=== PATIENT | male | born 1945 | race Caucasian/White ===

== ENCOUNTER → 2024-01-13 08:18 | Outpatient (REF) | payer MEDICARE, SELFPAY | LOC: MRI 3T 08:18 | PROVIDERS: ATTENDING PHYSICIAN Specialist; FAMILY PHYSICIAN Family Medicine | DX: R97.20 Elevated prostate specific antigen [PSA] (principal) | CPT/HCPCS: 72197; A9575 ==

== ENCOUNTER → 2024-02-05 11:10 | Outpatient (REF) | payer MEDICARE, SELFPAY | LOC: CLAB 11:10 | PROVIDERS: ATTENDING PHYSICIAN Specialist | DX: R97.20 Elevated prostate specific antigen [PSA] (principal) | CPT/HCPCS: 88305; 88344 ==

== ENCOUNTER 2024-04-09 09:05 | Outpatient (RCR) | payer MEDICARE, SELFPAY | END 2024-04-09 23:59 | disposition home or self-care (01) | LOC: RPT 09:05 | PROVIDERS: ATTENDING PHYSICIAN Specialist; FAMILY PHYSICIAN Family Medicine | DX: C61 Malignant neoplasm of prostate (principal); M62.89 Other specified disorders of muscle; Z73.6 Limitation of activities due to disability | CPT/HCPCS: 97161; 97530 ==

== ENCOUNTER 2024-05-05 06:09 | Inpatient (IN) | payer MEDICARE, SELFPAY ==
[2024-04-28 06:44] VITALS: BMI 24.6
[2024-04-28 09:36] LABS: Hematocrit 42.5 % (39.0-52.0); Hemoglobin 14.1 g/dL (13.0-18.0); Mean Corp Hgb Conc. 33.2 g/dL (33.0-37.0); Mean Corpuscular Hgb 32.9 pg (27.0-31.0); Mean Corpuscular Volume 99.3 fL (80.0-94.0); Mean Platelet Volume 10.1 fL (7.4-10.4); Platelet Count 222 10^3/uL (130-400); Red Blood Cell Count 4.28 10^6/uL (4.70-6.10); Red Cell Dist. Width 12.5 % (11.5-14.5); White Blood Cell Count 5.6 10^3/uL (4.8-10.8)
[2024-04-28 09:43] LABS: INR 0.96; PT 12.6 Sec (11.4-14.6)
[2024-04-28 09:44] LABS: APTT 27.9 Sec (23.4-35.0)
[2024-04-28 09:50] LABS: Urine Albumin Negative (Neg - Trace); Urine Bilirubin Negative (Negative); Urine Character Clear (Clear); Urine Color Yellow; Urine Glucose Negative (Negative); Urine Ketone Negative (Negative); Urine Leukocyte Negative (Negative); Urine Nitrite Negative (Negative); Urine Occult Blood Negative (Negative); Urine Urobilinogen Negative (Neg - 1+)
[2024-04-28 09:57] LABS: Blood Urea Nitrogen 17 mg/dl (9-20); Calcium 9.9 mg/dl (8.4-10.2); Carbon Dioxide 27 mmol/L (22-30); Chloride 102 mmol/L (98-107); Estimated Creatinine Clearance 76 ml/min; Glucose 81 mg/dl (70-99); Potassium 4.4 mmol/L (3.5-5.1); Sodium 137 mmol/L (135-145); eGFR > 60.00
[2024-05-05] VITALS (15 sets, daily range): BP systolic 102–142; BP diastolic 52–90; BMI 24.6
[2024-05-05] MEDS: NEOMYCIN ENEMA 1 BOTTLE RECTAL (07:32)
[2024-05-05] MEDS: NORMOSOL-R 1000 IV (07:33)
--- NOTE | 2024-05-05 09:29 | W.PN.ADMIT ---
Progress Note - Admit
Progress Note - Admit
pt s/p RPP
admit for post op monitoring
[2024-05-05 10:17] LABS: Hematocrit 38.5 % (39.0-52.0); Hemoglobin 13.2 g/dL (13.0-18.0); Mean Corp Hgb Conc. 34.3 g/dL (33.0-37.0); Mean Corpuscular Hgb 33.2 pg (27.0-31.0); Mean Platelet Volume 9.8 fL (7.4-10.4); Platelet Count 181 10^3/uL (130-400); Red Blood Cell Count 3.97 10^6/uL (4.70-6.10); Red Cell Dist. Width 12.4 % (11.5-14.5); White Blood Cell Count 5.8 10^3/uL (4.8-10.8)
[2024-05-05 10:29] LABS: Blood Urea Nitrogen 20 mg/dl (9-20); Calcium 8.8 mg/dl (8.4-10.2); Carbon Dioxide 21 mmol/L (22-30); Chloride 104 mmol/L (98-107); Estimated Creatinine Clearance 76 ml/min; Glucose 83 mg/dl (70-99); Potassium 4.8 mmol/L (3.5-5.1); Sodium 137 mmol/L (135-145); eGFR > 60.00
[2024-05-05] MEDS: NSS 1000 IV ×2 (11:13→20:52)
--- NOTE | 2024-05-05 14:25 | PTCARENOTE ---
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
Indwelling urinary catheter present; Bed in lowest position, wheels locked; Call johnson within reach; IVF infusing; Assessment ongoing
[2024-05-05] MEDS: COLACE 100 MG PO (20:52)
[2024-05-05] MEDS: TYLENOL 650 MG PO (20:53)
[2024-05-05] MEDS: XALATAN OPHTHALMIC SOLUTION 1 DROP BOTH EYES (20:54)
[2024-05-06 03:03] VITALS: BP 131/60
[2024-05-06] MEDS: ULTRAM 50 MG PO ×3 (03:30→18:45)
[2024-05-06] MEDS: NSS 1000 IV (05:57)
[2024-05-06 07:25] VITALS: BP 128/63
--- NOTE | 2024-05-06 07:33 | W.PN.URO.CBU ---
Today's Communication / Plan
-
routine post op care
Assessment / Plan
-
s/p RPP
UOOB
clear liquid diet
leg bag teaching and VN
check labs
Diagnosis
-
Date of Service: May 06, 2024
-
Patient Diagnosis:
prostate cancer
Post Op Day:
RPP 7/
Subjective
-
pt doing well
minimal pain
expected wound drainage
urine clear
Objective
-
Vital Signs
Temp Pulse Resp BP Pulse Ox
97.6 F 87 18 131/60 97
05/06/24 03:03 05/06/24 03:03 05/06/24 03:03 05/06/24 03:03 05/06/24 03:03
Intake and Output
05/05/24 05/06/24 05/07/24
06:59 06:59 06:59
Intake Total 1969 / 1969
Output Total 1250 / 1250
Balance 720 / 720
Intake:
Oral fluids 20 / 20
IV fluids (Total) 1950 / 1950
NSS @ 100 ML/HR 250 / 250
Normosol 100 / 100
Output:
Urine, Connell 1250 / 1250
Review of Systems
-
Constitutional: No Symptoms
Respiratory: No Symptoms
Cardiac: No Symptoms
Abdomen/GI: No Symptoms
Physical Exam
-
General - well developed, well nourished, no acute distress
Abdomen - soft, non-tender,
Genitalia - normal- connell in place
Neuro - AOx3, no motor deficits
Extremities - no clubbing, no cyanosis, no edema
Dressing -expected sero-sang drainage
[2024-05-06 07:35] LABS: Hematocrit 34.9 % (39.0-52.0); Mean Corp Hgb Conc. 34.4 g/dL (33.0-37.0); Mean Corpuscular Hgb 33.8 pg (27.0-31.0); Mean Corpuscular Volume 98.3 fL (80.0-94.0); Mean Platelet Volume 9.8 fL (7.4-10.4); Platelet Count 192 10^3/uL (130-400); Red Blood Cell Count 3.55 10^6/uL (4.70-6.10); Red Cell Dist. Width 12.5 % (11.5-14.5); White Blood Cell Count 8.5 10^3/uL (4.8-10.8)
[2024-05-06 08:47] LABS: Blood Urea Nitrogen 20 mg/dl (9-20); Calcium 8.5 mg/dl (8.4-10.2); Carbon Dioxide 23 mmol/L (22-30); Chloride 104 mmol/L (98-107); Estimated Creatinine Clearance 76 ml/min; Glucose 104 mg/dl (70-99); Potassium 4.8 mmol/L (3.5-5.1); Sodium 133 mmol/L (135-145); eGFR > 60.00
--- NOTE | 2024-05-06 09:37 | PN.CDI ---
CDI
- -
CDI:
Physician Documentation Request
Admit Date: 05/05/24 06:09
Dear Doctor Gregorio,
Please review the following and provide your response in the progress notes.
Clinical Indicators:
05/05 Radical Perineal Prostatectomy
#EBL: 250 ML
Laboratory Tests
04/28/24 05/05/24 05/06/24
06:35 10:04 06:49
Hgb 14.1 13.2 12.0 L
Based on the above and your clinical assessment, please clarify in the progress notes, the appropriate diagnosis, if significant, that supports the above abnormalities and additional evaluation, monitoring and/or treatment rendered:
Acute blood loss anemia
Abnormal lab value, clinically insignificant
Other (please specify)
Use of terms such as suspected, likely, concern for, or probable (associated with a specific diagnosis that is being evaluated, monitored, or treated as if it exists) are acceptable and can be coded in the inpatient setting, when documented at the
time of discharge.
Thank you,
Kristie Underwood RN BSN CCDS
CDI Specialist
please contact via tiger text
Please use your independent medical judgment in providing your response.
[2024-05-06] MEDS: DETROL LA 4 MG PO (09:40)
[2024-05-06] MEDS: ROCEPHIN 1000 MG IV (09:40)
[2024-05-06] MEDS: COLACE 100 MG PO ×2 (09:40→20:32)
[2024-05-06] MEDS: STERILE WATER FOR INJECTION 10 ML IV (09:41)
[2024-05-06] MEDS: TIMOPTIC 0.25% OPHTHALMIC SOLUTION 1 DROP OPHTH (09:42)
[2024-05-06 11:15] VITALS: BP 121/74
--- NOTE | 2024-05-06 14:00 | PTCARENOTE ---
Patient c/o feeling irate and agitated. Patient cannot explain why he feels this way and states he never felt like this before. RN suggest patient take a walk with his . patient ambulated in halls and feels better.
--- NOTE | 2024-05-06 14:27 | PTCARENOTE ---
Patient ambulating in halls multiple times today, tolerating clear liquid diet, minimal c/o rectal pain. Sitting in chair at present, denies need for pain med.
--- NOTE | 2024-05-06 15:04 | VNURNOTE ---
Home health liaison met with patient to discuss [facility] services, visit scheduling/frequency, homebound status and pet policy. Patient understands home visits will be 1-2 times a week to assess and teach medical management, catheter teaching. Patient
aware a visiting nurse will contact them for start of care within 1-2 days after discharge from . [facility] Referral completed in care port
[2024-05-06 15:25] VITALS: BP 120/74
--- NOTE | 2024-05-06 16:00 | PTCARENOTE ---
RN verbalized and demonstrated leg bag teaching with patient. Patient demonstrated understanding.
[2024-05-06] MEDS: TIMOPTIC 0.25% OPHTHALMIC SOLUTION OPHTH (20:34)
[2024-05-06] MEDS: XALATAN OPHTHALMIC SOLUTION 1 DROP BOTH EYES (20:38)
[2024-05-06 23:11] VITALS: BP 114/70
[2024-05-07] MEDS: ULTRAM 50 MG PO (05:53)
[2024-05-07] MEDS: STERILE WATER FOR INJECTION 10 ML IV (07:18)
[2024-05-07] MEDS: DETROL LA 4 MG PO (07:18)
[2024-05-07] MEDS: TIMOPTIC 0.25% OPHTHALMIC SOLUTION 1 DROP OPHTH (07:18)
[2024-05-07] MEDS: ROCEPHIN 1000 MG IV (07:18)
[2024-05-07] MEDS: COLACE 100 MG PO (07:18)
[2024-05-07 07:25] VITALS: BP 114/70
--- NOTE | 2024-05-07 07:58 | W.PN.URO.CBU ---
Addendum entered and electronically signed by Carlos Perkins Jr., MD 05/07/24 09:25:
in response to billing inquiry
pt has mild anemia- expected and within range after surgery due to expected blood loss from surgery and iv hydration
Original Note:
Today's Communication / Plan
-
advance post op care- possible discharge later today
Assessment / Plan
-
s/p RPP
regular diet
evaluate later today for discharge
Diagnosis
-
Date of Service: May 07, 2024
-
Patient Diagnosis:
prostate cancer
Post Op Day:
RPP 05/05
Subjective
-
pt doing well
+ flatus- no bm
urine clear to pink
labs stable
minimal pain
Objective
-
Vital Signs
Temp Pulse Resp BP Pulse Ox
98.5 F 78 16 114/70 96
05/06/24 23:11 05/06/24 23:11 05/06/24 23:11 05/06/24 23:11 05/06/24 23:11
Intake and Output
05/06/24 05/07/24 05/08/24
06:59 06:59 06:59
Intake Total 1969
Output Total 1250 / 1250 850 / 850
Balance 720 / 720 1010 / 1010
Intake:
Oral fluids 1859
IV fluids (Total) 1949
NSS @ 100 ML/HR 250 / 250
Normosol 100 / 100
Output:
Urine, Avalos 1250 / 1250 850 / 850
Laboratory Results
05/06/24 06:49
05/06/24 06:49
Review of Systems
-
Constitutional: No Symptoms
Respiratory: No Symptoms
Cardiac: No Symptoms
Abdomen/GI: No Symptoms
Physical Exam
-
General - no acute distress
Abdomen - soft, non-tender
Genitalia - normal
Neuro - AOx3, no motor deficits
Extremities - no clubbing, no cyanosis, no edema
Incision - clean, dry- dressing removed/drain removed
--- NOTE | 2024-05-07 08:47 | CM ---
met with patient at bedside.patient lives with his in house with 2 maryann,his bed and bath is on secodn level,he amb i,is I with his adl's,no dme,his pcp is dr tab russell and he uses [address] in [place].he has never had a vn or been in
ip rehab
patient is sp perineal prostatectomy.he has a connell,regular diet,pain controlled,possible dc home tioday with [facility].plan home with [facility] for connell care and wound management..
[2024-05-07] MEDS: MILK OF MAGNESIA 30 ML PO (11:11)
[2024-05-07] MEDS: TYLENOL 650 MG PO (11:41)
--- NOTE | 2024-05-07 15:26 | W.DS.TRANS ---
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
-
Discharge Instructions:
Sleep Apnea Risk Intermediate
Discharge Diagnosis/Procedures you had a perineal prostatectomy
Diet No restrictions
Activity No strenuous activity
Additional Activity no lifting over 10lbs
Driving Restrictions Not until seen by your Dr
Bathing Restrictions shower after each bowel movemnent
Other Services VN
Wound Care expect bloody and occ brown drainage from
incision site
expect occ blood in urine and around catheter
may apply neosporin ointment to cath insertion
site for irritation as needed
Instructions:
Stand-Alone Forms:
Changes to Home Medications: No
Discharge Medications:
DC Medications w/original date entered in [employer]
latanoprost (PF) 0.005 % eye drops in a dropperette 1 drp ophthalmic (eye) HS 04/29/24
timolol maleate (PF) 0.25 % eye drops in a dropperette 1 drp ophthalmic (eye) DAILY 04/29/24
docusate sodium 100 mg capsule (Colace) 100 mg PO BID #60 caps 05/06/24
naproxen sodium 220 mg capsule (Aleve) 220 mg PO BID #60 caps 05/06/24
nitrofurantoin macrocrystal 50 mg capsule (Macrodantin) 50 mg PO HS #14 caps 05/06/24
tramadol 50 mg tablet 50 mg PO Q8H PRN Pain #30 tabs 05/06/24
Home Medication Changes
Pending Results: Yes
Additional Pending Results:
prostate pathology
[2024-05-07 15:33] VITALS: BP 139/88
[2024-05-07 19:04] LABS: Hepatitis C Antibody Negative (Negative)
== END 2024-05-07 15:43 | disposition home health service (06) | DRG 708 ==
LOC: 2 SOUTH 06:09
PROVIDERS: ADMITTING PHYSICIAN Specialist; FAMILY PHYSICIAN Family Medicine
PROC: 0VT00ZZ Resection of Prostate, Open Approach (ICD-10-PCS; 2024-05-05)
PROC: 0TQC0ZZ Repair Bladder Neck, Open Approach (ICD-10-PCS; 2024-05-05)
PROC: 0VT30ZZ Resection of Bilateral Seminal Vesicles, Open Approach (ICD-10-PCS; 2024-05-05)
DX: C61 Malignant neoplasm of prostate (principal); D64.9 Anemia, unspecified
CPT/HCPCS: 88305; 88309; 88332; 36415; 80048; 81003; 85027; 85610; 85730; 86803; 86850; 86900; 86901; 88331; 88342; 88344; 93005; A4648

== ENCOUNTER 2024-06-19 07:00 | Outpatient (RCR) | payer MEDICARE, SELFPAY | END 2024-06-19 23:59 | disposition home or self-care (01) | LOC: RPT 07:00 | PROVIDERS: ATTENDING PHYSICIAN Specialist; FAMILY PHYSICIAN Family Medicine | DX: C61 Malignant neoplasm of prostate (principal); M62.89 Other specified disorders of muscle; Z73.6 Limitation of activities due to disability; R10.2 Pelvic and perineal pain; N39.3 Stress incontinence (female) (male); N39.41 Urge incontinence | CPT/HCPCS: 97110; 97164; 97530 ==

== ENCOUNTER 2024-07-20 06:31 | Outpatient (RCR) | payer MEDICARE, SELFPAY | END 2024-07-20 23:59 | disposition home or self-care (01) | LOC: RPT 06:31 | PROVIDERS: ATTENDING PHYSICIAN Specialist; FAMILY PHYSICIAN Family Medicine | DX: C61 Malignant neoplasm of prostate (principal); M62.89 Other specified disorders of muscle; R10.2 Pelvic and perineal pain; N39.3 Stress incontinence (female) (male); Z73.6 Limitation of activities due to disability | CPT/HCPCS: 97110; 97112; 97140; 97530 ==

== ENCOUNTER 2024-07-28 06:40 | Outpatient (RCR) | payer MEDICARE, SELFPAY | END 2024-07-28 12:55 | disposition home or self-care (01) | LOC: RPT 06:40 | PROVIDERS: ATTENDING PHYSICIAN Specialist; FAMILY PHYSICIAN Family Medicine | DX: C61 Malignant neoplasm of prostate (principal); M62.89 Other specified disorders of muscle; Z73.6 Limitation of activities due to disability; R10.2 Pelvic and perineal pain; N39.41 Urge incontinence | CPT/HCPCS: 97110; 97140; 97530 ==